=== PATIENT | female | born 1980 | race Caucasian/White ===

== ENCOUNTER 2017-08-20 10:00 | Emergency (ER) | payer OTHER ==
[~2017-08-20] VITALS: Ht 157.5 cm; Wt 70.4 kg
[~2017-08-20 10:00] MED LIST: Colace PO; EXPECTA PRENAT1 EACH PO; Feosol PO; Motrin PO; NOHOMEMEDS; Pepcid PO; Percocet 5/325,Endoc PO; ZANTAC75 M1 PO
[2017-08-20] MEDS ORDERED: HYDROCODON-ACE1 EAC7 PO (10:19)
[2017-08-20] MEDS ORDERED: TRAMADOL HCL50 MG PO (10:19)
[2017-08-20 10:48] LABS: BASOPHIL COUNT 0.1 K/uL (0-0.1); EOSINOPHIL (%) 1.6 % (0-5); EOSINOPHIL COUNT 0.2 K/uL (0-0.3); HEMATOCRIT 50.3 % (36.0-46.0); IMMATURE GRANULOCYTE (%) 0.2 % (0.0-0.7); INSTRUMENT ABS NEUTROPHIL CT 8.3 K/uL; LYMPHOCYTE COUNT 2.8 K/uL (1.0-2.8); MCH 28.7 PG (29.0-34.0); MCHC 33.2 G/DL (30.0-36.0); MCV 86.4 FL (83-99); MONOCYTE (%) 5.8 % (3-12); MONOCYTE COUNT 0.7 K/uL (0-0.8); NEUTROPHIL (%) 68.7 % (45-76); NEUTROPHIL COUNT 8.3 K/uL (1.8-6.4); PLATELET COUNT 285 K/uL (156-360); RBC DIS.WIDTH-CV 14.2 % (11.8-14.6); RED BLOOD COUNT 5.82 M/uL (3.80-5.20)
[2017-08-20 11:03] LABS: CHLORIDE 104 mEq/L (99-109); POTASSIUM 3.9 mEq/L (3.7-5.4); SODIUM 140 mEq/L (136-147)
[2017-08-20 11:05] LABS: GLUCOSE 86 mg/dL (70-99)
[2017-08-20 11:06] LABS: ANION GAP 13 MEQ/L (2-14)
[2017-08-20 11:07] LABS: TOTAL BILIRUBIN 0.5 mg/dL (0.0-1.0)
[2017-08-20 11:08] LABS: ALKALINE PHOSPHATASE 82 IU/L (3-129)
[2017-08-20 11:09] LABS: GFR ESTIMATE (CALCULATED) > 59 mL/min/
[2017-08-20 11:10] LABS: UREA NITROGEN (BUN) 7 mg/dL (9-23)
[2017-08-20 11:12] LABS: LIPASE 25 U/L (1.0-51.0)
[2017-08-20 12:23] LABS: ADD MIUA? YES; BILIRUBIN NEGATIVE; BLOOD NEGATIVE; COLOR YELLOW ((YELLOW)); GLUCOSE (STRIP) NEGATIVE; KETONES NEGATIVE; LEUKOCYTES TRACE; NITRITE NEGATIVE; PROTEIN (STRIP) NEGATIVE; SPECIFIC GRAVITY 1.043 (1.000-1.030); UROBILINOGEN 0.2 MG/DL (0.2-1.0)
[2017-08-20 12:26] LABS: BACTERIA RARE /HPF; EPITHELIAL CELLS 2+ /HPF; MUCUS TRACE /LPF; RED BLOOD CELLS 0-5 /HPF (0-5); WHITE BLOOD CELLS 0-5 /HPF (0-5)
[2017-08-20 17:30] VITALS: BP 99/68
[2017-08-22] MEDS ORDERED: CALCIUM 500 +1 EACH PO (13:28)
[2017-08-22] MEDS ORDERED: L-METHYL-MC TA1 EACH PO (13:28)
[2017-08-22] MEDS ORDERED: MULTI-VITAMIN-1 EACH PO (13:29)
[2017-08-22] MEDS ORDERED: OSTERA TABLET1 EACH PO ×2 (13:30→13:32)
[2017-08-22] MEDS ORDERED: JOLIVETTE0.35 MG PO (13:32)
[2017-08-22] MEDS ORDERED: VENTOLIN HFA18 GM IH (13:33)
[2017-08-22] MEDS ORDERED: PERCOCET 5/31 TABLET PO (13:33)
== END 2017-08-20 17:31 | disposition home or self-care (01) ==
LOC: EME 10:00
PROVIDERS: Emergency Medicine
DX: R10.31 Right lower quadrant pain (principal); R82.99 Other abnormal findings in urine; Z98.84 Bariatric surgery status; Z90.49 Acquired absence of other specified parts of digestive tract; F17.200 Nicotine dependence, unspecified, uncomplicated
CPT/HCPCS: 74177; 80053; 81003; 83690; 85025; 99281; 99285; J2270; J2405; J7030

== ENCOUNTER 2017-08-23 08:41 | Day surgery (SDC) | payer OTHER ==
[~2017-08-23] VITALS: Ht 157.5 cm; Wt 70.4 kg
[~2017-08-23 08:41] MED LIST changes: +CALCIUM 500 +1 EACH PO; +HYDROCODON-ACE1 EAC7 PO; +JOLIVETTE0.35 MG PO; +L-METHYL-MC TA1 EACH PO; +MULTI-VITAMIN-1 EACH PO; +OSTERA TABLET1 EACH PO; +PERCOCET 5/31 TABLET PO; +TRAMADOL HCL50 MG PO; +VENTOLIN HFA18 GM IH
[2017-08-23 09:17] VITALS: BP 101/70
[2017-08-23] MEDS ORDERED: LORCET 5-325 M1 EACH PO (12:17)
[2017-08-23 14:50] VITALS: BP 119/70
[2017-08-23 15:50] VITALS: BP 114/72
[2017-08-23 17:00] VITALS: BP 114/66
[2017-08-24 12:35] LABS: INTERNAL CONTROL VALID? YES
== END 2017-08-23 17:15 | disposition home or self-care (01) ==
LOC: SDC
PROVIDERS: Surgery
PROC: 0WUF4JZ Supplement Abdominal Wall with Synthetic Substitute, Percutaneous Endoscopic Approach (ICD-10-PCS; principal; 2017-08-23)
DX: K43.6 Other and unspecified ventral hernia with obstruction, without gangrene (principal); K21.9 Gastro-esophageal reflux disease without esophagitis; Z98.84 Bariatric surgery status; Z87.891 Personal history of nicotine dependence; E66.9 Obesity, unspecified; Z68.28 Body mass index [BMI] 28.0-28.9, adult
CPT/HCPCS: 84703; C1781; J0131; J0690; J1100; J1170; J1885; J2250; J2405; J2550; J3010

== ENCOUNTER 2017-10-14 15:27 | Emergency (ER) | payer OTHER ==
[~2017-10-14] VITALS: Ht 157.5 cm; Wt 70.5 kg
[~2017-10-14 15:27] MED LIST changes: +LORCET 5-325 M1 EACH PO
[2017-10-14 16:34] LABS: HEMATOCRIT 46.3 % (36.0-46.0); MCH 29.5 PG (29.0-34.0); MCHC 33.7 G/DL (30.0-36.0); MCV 87.5 FL (83-99); MEAN PLAT.VOLUME 8.8 uM^3 (9.5-12.4); PLATELET COUNT 301 K/uL (156-360); RBC DIS.WIDTH-CV 14.5 % (11.8-14.6); RED BLOOD COUNT 5.29 M/uL (3.80-5.20); WHITE BLOOD COUNT 9.9 K/uL (4.1-10.2)
[2017-10-14 16:38] LABS: ADD MIUA? NO; BILIRUBIN NEGATIVE; BLOOD NEGATIVE; COLOR YELLOW ((YELLOW)); GLUCOSE (STRIP) NEGATIVE; KETONES NEGATIVE; LEUKOCYTES NEGATIVE; NITRITE NEGATIVE; PROTEIN (STRIP) NEGATIVE; SPECIFIC GRAVITY 1.011 (1.000-1.030); UCUL ADDED? NO
[2017-10-14 16:46] LABS: CHLORIDE 106 mEq/L (99-109); POTASSIUM 4.4 mEq/L (3.7-5.4); SODIUM 140 mEq/L (136-147)
[2017-10-14 16:48] LABS: GLUCOSE 91 mg/dL (70-99)
[2017-10-14 16:49] LABS: ANION GAP 8 MEQ/L (2-14)
[2017-10-14 16:50] LABS: TOTAL BILIRUBIN 0.3 mg/dL (0.0-1.0)
[2017-10-14 16:51] LABS: ALKALINE PHOSPHATASE 89 IU/L (3-129); GFR ESTIMATE (CALCULATED) > 59 mL/min/
[2017-10-14 16:53] LABS: UREA NITROGEN (BUN) 9 mg/dL (9-23)
[2017-10-14 17:00] LABS: QUANTITATIVE HCG < 4.0 MIU/ML
[2017-10-14] MEDS ORDERED: BACTRIM,SEPT1 TABLET PO (21:23)
[2017-10-14 22:13] VITALS: BP 129/94
== END 2017-10-14 22:15 | disposition home or self-care (01) ==
LOC: EME 15:27
PROVIDERS: Physician Assistant
PROC: 0T9B70Z Drainage of Bladder with Drainage Device, Via Natural or Artificial Opening (ICD-10-PCS; principal; 2017-10-14)
DX: R33.9 Retention of urine, unspecified (principal); G89.18 Other acute postprocedural pain; R10.9 Unspecified abdominal pain; Z98.890 Other specified postprocedural states; K21.9 Gastro-esophageal reflux disease without esophagitis; F17.200 Nicotine dependence, unspecified, uncomplicated; Z98.84 Bariatric surgery status; Z87.442 Personal history of urinary calculi; Z88.8 Allergy status to other drugs, medicaments and biological substances
CPT/HCPCS: 74177; 80053; 81003; 84702; 85027; 99281; 99285; J2405; J3010; J7030

== ENCOUNTER 2018-06-20 12:08 | Day surgery (SDC) | payer OTHER ==
[~2018-06-20] VITALS: Ht 162.6 cm; Wt 66.8 kg
[~2018-06-20 12:08] MED LIST changes: +BACTRIM,SEPT1 TABLET PO
[2018-06-20 12:57] LABS: BASOPHIL (%) 0.3 % (0-1); EOSINOPHIL (%) 0.9 % (0-5); EOSINOPHIL COUNT 0.1 K/uL (0-0.3); HEMATOCRIT 33.5 % (36.0-46.0); HEMOGLOBIN 11.5 G/DL (11.9-15.5); IMMATURE GRANULOCYTE (%) 0.4 % (0.0-0.7); LYMPHOCYTE (%) 18.2 % (15-42); MCH 30.8 PG (29.0-34.0); MCHC 34.3 G/DL (30.0-36.0); MCV 89.8 FL (83-99); MONOCYTE COUNT 0.8 K/uL (0-0.8); NEUTROPHIL (%) 73.2 % (45-76); PLATELET COUNT 242 K/uL (156-360); RBC DIS.WIDTH-SD 45.8 % (39-53); RED BLOOD COUNT 3.73 M/uL (3.80-5.20)
[2018-06-20 13:05] LABS: CHLORIDE 107 mEq/L (99-109); POTASSIUM 3.6 mEq/L (3.7-5.4); SODIUM 140 mEq/L (136-147)
[2018-06-20 13:07] LABS: GLUCOSE 77 mg/dL (70-99)
[2018-06-20 13:11] LABS: CREATININE 0.6 mg/dL (0.6-1.3); GFR ESTIMATE (CALCULATED) > 59 mL/min/
[2018-06-20 13:12] LABS: UREA NITROGEN (BUN) 5 mg/dL (9-23)
[2018-06-20 13:19] LABS: QUANTITATIVE HCG 4453.6 MIU/ML
[2018-06-20 16:18] LABS: HEMATOCRIT 27.2 % (36.0-46.0); HEMOGLOBIN 9.1 G/DL (11.9-15.5); MCH 30.1 PG (29.0-34.0); MCHC 33.5 G/DL (30.0-36.0); MCV 90.1 FL (83-99); PLATELET COUNT 205 K/uL (156-360); RBC DIS.WIDTH-CV 14.2 % (11.8-14.6); RBC DIS.WIDTH-SD 46.4 % (39-53); RED BLOOD COUNT 3.02 M/uL (3.80-5.20); WHITE BLOOD COUNT 9.2 K/uL (4.1-10.2)
[2018-06-20 20:31] VITALS: BP 95/63
[2018-06-20 21:55] LABS: BASOPHIL (%) 0.3 % (0-1); EOSINOPHIL (%) 0.1 % (0-5); HEMATOCRIT 27.3 % (36.0-46.0); HEMOGLOBIN 9.3 G/DL (11.9-15.5); IMMATURE GRANULOCYTE (%) 0.5 % (0.0-0.7); LYMPHOCYTE (%) 11.3 % (15-42); LYMPHOCYTE COUNT 1.3 K/uL (1.0-2.8); MCH 30.8 PG (29.0-34.0); MCHC 34.1 G/DL (30.0-36.0); MCV 90.4 FL (83-99); MONOCYTE (%) 1.1 % (3-12); MONOCYTE COUNT 0.1 K/uL (0-0.8); NEUTROPHIL (%) 86.7 % (45-76); NEUTROPHIL COUNT 9.8 K/uL (1.8-6.4); PLATELET COUNT 231 K/uL (156-360); RBC DIS.WIDTH-CV 14.2 % (11.8-14.6); RBC DIS.WIDTH-SD 47.4 % (39-53); RED BLOOD COUNT 3.02 M/uL (3.80-5.20); WHITE BLOOD COUNT 11.3 K/uL (4.1-10.2)
[2018-06-21 00:44] VITALS: BP 96/55
[2018-06-21 04:05] VITALS: BP 111/68
[2018-06-21 08:07] VITALS: BP 110/70
[2018-06-21 08:15] LABS: BASOPHIL (%) 0.2 % (0-1); EOSINOPHIL (%) 0.5 % (0-5); EOSINOPHIL COUNT 0.1 K/uL (0-0.3); HEMATOCRIT 20.7 % (36.0-46.0); HEMOGLOBIN 7.2 G/DL (11.9-15.5); IMMATURE GRANULOCYTE (%) 0.3 % (0.0-0.7); LYMPHOCYTE (%) 25.6 % (15-42); LYMPHOCYTE COUNT 2.6 K/uL (1.0-2.8); MCHC 34.8 G/DL (30.0-36.0); MCV 89.2 FL (83-99); MONOCYTE (%) 5.3 % (3-12); MONOCYTE COUNT 0.5 K/uL (0-0.8); NEUTROPHIL (%) 68.1 % (45-76); NEUTROPHIL COUNT 6.9 K/uL (1.8-6.4); PLATELET COUNT 180 K/uL (156-360); RBC DIS.WIDTH-CV 14.2 % (11.8-14.6); RBC DIS.WIDTH-SD 45.9 % (39-53); RED BLOOD COUNT 2.32 M/uL (3.80-5.20); WHITE BLOOD COUNT 10.1 K/uL (4.1-10.2)
== END 2018-06-21 09:20 | disposition home or self-care (01) ==
LOC: EME 12:08 → SDC 17:15 → 2SOUTH 18:00 → 2EASTP 18:00 → ENRESERV 18:02 → 2EASTP 19:13
PROVIDERS: Emergency Medicine; Obstetrics & Gynecology Obstetrics
PROC: 10D17ZZ Extraction of Products of Conception, Retained, Via Natural or Artificial Opening (ICD-10-PCS; principal; 2018-06-20)
DX: O03.39 Incomplete spontaneous abortion with other complications (principal); F17.200 Nicotine dependence, unspecified, uncomplicated
CPT/HCPCS: 73140; 76801; 80048; 82948; 84702; 85025; 85025 91; 85027; 86850; 86900; 86901; 88305; 93005; G0378; J1100; J1885; J2405; J3010; J7120